=== PATIENT | female | born 1995 | race Caucasian/White ===

== ENCOUNTER 2017-08-05 07:58 | Emergency (ER) | payer MEDICAID ==
[~2017-08-05] VITALS: Ht 160 cm; Wt 60.3 kg
[2017-08-05] MEDS ORDERED: MORPHINE SULFATE 4 MG/ML, 1ML ONE (10:34)
[2017-08-05] MEDS: MORPHINE SULFATE 4 MG/ML, 1ML IVPush PRN ×2 (10:36→11:00)
[2017-08-05 10:51] LABS: ALANINE AMINOTRANSFERASE 22 U/L (12-78); ALBUMIN 3.9 g/dL (3.4-5.0); ANION GAP 6 mmol/L (5-15); CALCIUM 8.4 mg/dL (8.5-10.1); CHLORIDE 106 mmol/L (98-107)
[2017-08-05 11:08] LABS: ALKALINE PHOSPHATASE 52 U/L (45-117); BILIRUBIN,TOTAL 0.9 mg/dL (0.2-1.0); CREATININE 0.58 mg/dL (0.55-1.02); TOTAL PROTEIN 7.3 g/dL (6.4-8.2)
[2017-08-05 12:08] LABS: MICROSCOPIC INDICATED
[2017-08-05 12:23] LABS: CULTURE INDICATED? YES
[2017-08-05 12:34] VITALS: BP 101/58
== END 2017-08-05 13:02 | disposition home or self-care (01) ==
LOC: ED 12:57
DX: O23.11 Infections of bladder in pregnancy, first trimester (principal); Z3A.01 Less than 8 weeks gestation of pregnancy
CPT/HCPCS: 36415; 76801; 80053; 81001; 84702; 86901; 87086; 96374; 99285

== ENCOUNTER 2017-11-19 23:06 | Outpatient (CLI) | payer MEDICAID ==
[~2017-11-19] VITALS: Ht 160 cm; Wt 65.0 kg
[2017-11-19 23:15] VITALS: BP 99/51
[2017-11-19 23:58] LABS: BASOPHILS # (AUTO) 0.06 x10^3/uL (0-0.1); BASOPHILS % (AUTO) 1 % (0-1); EOSINOPHILS # (AUTO) 0.12 x10^3/uL (0-0.4); EOSINOPHILS % (AUTO) 1 % (1-7); LYMPHOCYTES # (AUTO) 1.76 x10^3/uL (1-3.4); LYMPHOCYTES % (AUTO) 19 % (22-44); MD NO; MEAN CORPUSCULAR HEMOGLOBIN 30.3 pg (27.0-34.8); MEAN CORPUSCULAR HGB CONC 33.7 g/dL (32.4-35.8); MEAN CORPUSCULAR VOLUME 90.1 fL (80-100); MEAN PLATELET VOLUME 8.6 fL (7.4-10.4); MONOCYTES # (AUTO) 0.45 x10^3/uL (0.2-0.8); MONOCYTES % (AUTO) 5 % (2-9); NEUTROPHILS # (AUTO) 6.77 x10^3/uL (1.8-6.8); NEUTROPHILS % (AUTO) 74 % (42-75); PLATELET COUNT 184 x10^3/uL (130-400); RED BLOOD COUNT 3.81 x10^6/uL (3.82-5.3); RED CELL DISTRIBUTION WIDTH 13.1 % (9.6-15.2)
[2017-11-20 00:09] LABS: ALANINE AMINOTRANSFERASE 31 U/L (12-78); ALBUMIN 2.5 g/dL (3.4-5.0); ANION GAP 11 mmol/L (5-15); CALCIUM 7.9 mg/dL (8.5-10.1); CHLORIDE 111 mmol/L (98-107); CREATININE 0.44 mg/dL (0.55-1.02)
[2017-11-20 00:11] LABS: ALKALINE PHOSPHATASE 63 U/L (45-117); BILIRUBIN,TOTAL 0.3 mg/dL (0.2-1.0); TOTAL PROTEIN 6.1 g/dL (6.4-8.2)
[2017-11-20 00:27] LABS: MICROSCOPIC INDICATED
[2017-11-20 00:33] LABS: AMPHETAMINE SCREEN, URINE Negative (Negative); BARBITURATE SCREEN, URINE Negative (Negative); BENZODIAZEPINE SCREEN, URINE Negative (Negative); CANNABINOID SCREEN, URINE Negative (Negative); COCAINE SCREEN, URINE Negative (Negative); METHADONE SCREEN, URINE Negative (Negative); OPIATE SCREEN, URINE Negative (Negative)
== END 2017-11-20 01:08 | disposition home or self-care (01) ==
LOC: LDOP 23:06
PROVIDERS: ATTEND Student in an Organized Health Care Education/Training Program
DX: O99.612 Diseases of the digestive system complicating pregnancy, second trimester (principal); R10.13 Epigastric pain
CPT/HCPCS: 36415; 59025; 76700; 76815; 80053; 80307; 81001; 83690; 85025; 99211; G0463

== ENCOUNTER 2018-04-29 08:02 | Inpatient (IN) | payer MEDICAID ==
[~2018-04-29] VITALS: Ht 160 cm; Wt 62.1 kg
[2018-04-29] MEDS ORDERED: ONDANSETRON 2MG/ML, 2ML IVPush ONE (08:30)
[2018-04-29] MEDS ORDERED: SODIUM CHLORIDE FLUSH 10ML SYR IVF ONE (08:30)
[2018-04-29] MEDS ORDERED: MORPHINE SULFATE 4 MG/ML, 1ML ONE ×2 (08:31→09:48)
[2018-04-29] MEDS ORDERED: ONDANSETRON 2MG/ML, 2ML ONE ×2 (08:31→16:34)
[2018-04-29] MEDS: MORPHINE SULFATE 4 MG/ML, 1ML IVPush PRN ×2 (08:43→09:51)
[2018-04-29 09:00] LABS: HCG UR SG 1.027 (1.003-1.030)
[2018-04-29 09:02] LABS: CULTURE INDICATED? YES; MICROSCOPIC INDICATED
[2018-04-29 09:03] LABS: BASOPHILS # (AUTO) 0.03 x10^3/uL (0-0.1); BASOPHILS % (AUTO) 0 % (0-1); EOSINOPHILS # (AUTO) 0.07 x10^3/uL (0-0.4); EOSINOPHILS % (AUTO) 1 % (1-7); LYMPHOCYTES % (AUTO) 22 % (22-44); MD NO; MEAN CORPUSCULAR HEMOGLOBIN 27.2 pg (27.0-34.8); MEAN CORPUSCULAR HGB CONC 32.8 g/dL (32.4-35.8); MEAN CORPUSCULAR VOLUME 82.8 fL (80-100); MEAN PLATELET VOLUME 8.6 fL (7.4-10.4); MONOCYTES # (AUTO) 0.39 x10^3/uL (0.2-0.8); MONOCYTES % (AUTO) 5 % (2-9); NEUTROPHILS # (AUTO) 5.87 x10^3/uL (1.8-6.8); NEUTROPHILS % (AUTO) 72 % (42-75); PLATELET COUNT 245 x10^3/uL (130-400); RED BLOOD COUNT 5.25 x10^6/uL (3.82-5.3); RED CELL DISTRIBUTION WIDTH 15.3 % (9.6-15.2)
--- NOTE | 2018-04-29 09:05 | NUR ---
pt laying on gurney with eyes closed, more comfortable after pain med, responds approp to staff, NAD, comfort measures provided, famiily at BS, call light within reach.
--- NOTE | 2018-04-29 09:11 | NUR ---
pt verbalized understanding of NPO order.
[2018-04-29 09:13] LABS: ALANINE AMINOTRANSFERASE 27 U/L (12-78); ALBUMIN 4.3 g/dL (3.4-5.0); ANION GAP 4 mmol/L (5-15); CALCIUM 8.8 mg/dL (8.5-10.1); CHLORIDE 111 mmol/L (98-107); CREATININE 0.83 mg/dL (0.55-1.02)
[2018-04-29 09:15] LABS: ALKALINE PHOSPHATASE 90 U/L (45-117); TOTAL PROTEIN 8.1 g/dL (6.4-8.2)
--- NOTE | 2018-04-29 09:50 | NUR ---
pt sitting up on gurney with awake with c/o pain, medicated per eMAR, responds approp to staff, NAD, comfort measures provided, famiily at BS, call light within reach. US at BS
[2018-04-29] MEDS ORDERED: HYDROmorphone 1 MG/ML, 1ML ONE (10:38)
--- NOTE | 2018-04-29 10:42 | NUR ---
pt to MRI
[2018-04-29] MEDS ORDERED: HYDROmorphone 1 MG/ML, 1ML IV ONE (11:00)
--- NOTE | 2018-04-29 11:34 | NUR ---
pt returned from MRI
[2018-04-29] MEDS ORDERED: CEFOTETAN PMX 1GM/50ML 0 ML ONE (11:53)
[2018-04-29] MEDS ORDERED: CEFOTETAN PMX 2GM/50ML 50 ML IV ONE (12:00)
[2018-04-29] MEDS ORDERED: ONDANSETRON 2MG/ML, 2ML IVPush PRN (12:00)
[2018-04-29] MEDS ORDERED: SODIUM CHLORIDE 0.9%, 250ML IVBOLUS ONE (12:00)
[2018-04-29] MEDS ORDERED: SODIUM CHLORIDE FLUSH 10ML SYR IVF PRN (12:00)
[2018-04-29] MEDS ORDERED: MORPHINE SULFATE 4 MG/ML, 1ML IVPush PRN (12:00)
--- NOTE | 2018-04-29 12:00 | NUR ---
pt laying on gurney with eyes closed, responds approp to staff, NAD, comfort measures provided, famiily at BS, call light within reach. pt updated on POC by ERP
--- NOTE | 2018-04-29 12:27 | NUR ---
Pt to be admitted to Peds, room 306. Report called to Marisa.
[2018-04-29] MEDS ORDERED: SODIUM CHLORIDE 0.9% 1,000ML IVBOLUS ONE (12:30)
[2018-04-29] MEDS ORDERED: NS + 20MEQ KCL 1,000 ML IV SCH (12:30)
[2018-04-29] MEDS ORDERED: NS + 20MEQ KCL 1,000 ML IV ONE (12:30)
[2018-04-29 13:23] VITALS: BP 117/76
[2018-04-29] MEDS ORDERED: EPINEPHRINE 1 MG/ML, 1ML ONE (15:19)
[2018-04-29] MEDS ORDERED: BUPIVACAINE/PF 0.25% ONE (15:19)
[2018-04-29] MEDS ORDERED: MIDAZOLAM 1 MG/ML, 2ML ONE (15:28)
[2018-04-29] MEDS ORDERED: FENTANYL PF 100 MCG/2ML ONE (15:28)
[2018-04-29] MEDS ORDERED: HYDROmorphone 2 MG/ML, 1ML IVPush PRN (16:00)
[2018-04-29] MEDS ORDERED: METOPROLOL 1 MG/ML, 5ML IV PRN (16:00)
[2018-04-29] MEDS ORDERED: FENTANYL PF 100 MCG/2ML IV PRN (16:00)
[2018-04-29] MEDS ORDERED: LABETALOL 5MG/ML, 20ML IV PRN (16:00)
[2018-04-29] MEDS ORDERED: hydrALAzine 20 MG/ML, 1ML IV PRN (16:00)
[2018-04-29] MEDS ORDERED: PROCHLORPERAZINE 5 MG/ML, 2ML IV PRN (16:00)
[2018-04-29] MEDS ORDERED: HALOPERIDOL 5 MG/ML IV PRN (16:00)
[2018-04-29] MEDS ORDERED: DIPHENHYDRAMINE 50 MG/ML, 1ML IVPush PRN (16:00)
[2018-04-29] MEDS ORDERED: OXYcodone 5 MG/5 ML ORAL.SOL UDC PO PRN (16:00)
[2018-04-29] MEDS ORDERED: PROMETHAZINE 25 MG/ML, 1ML IV PRN (16:00)
[2018-04-29] MEDS ORDERED: MEPERIDINE/PF 25MG/0.5ML IVPush PRN (16:00)
[2018-04-29] MEDS ORDERED: PROPOFOL 10 MG/ML, 20ML ONE (16:34)
[2018-04-29] MEDS ORDERED: ROCURONIUM 10 MG/ML,10ML ONE (16:34)
[2018-04-29] MEDS ORDERED: KETOROLAC 30 MG/1 ML ONE (16:34)
[2018-04-29] MEDS ORDERED: SUCCINYLCHOLINE 20 MG/ML, 10ML ONE (16:34)
[2018-04-29] MEDS ORDERED: DEXAMETHASONE 4 MG/ML, 5ML ONE (16:34)
[2018-04-29] MEDS ORDERED: BUPIVACAINE/PF 0.25% INFIL ONE (16:54)
[2018-04-29] MEDS ORDERED: OXYcodone 5 MG/5 ML ORAL.SOL UDC ONE (17:41)
[2018-04-29] MEDS ORDERED: LACTATED RINGERS 1,000 ML IV SCH ×2 (18:33→19:00)
[2018-04-29 19:00] VITALS: BP 120/70
[2018-04-29] MEDS ORDERED: HYDROcodone/APAP 5/325 TABLET PO PRN ×2 (19:00)
[2018-04-29 19:30] VITALS: BP 117/69
[2018-04-29 20:00] VITALS: BP 105/59
[2018-04-29 21:40] VITALS: BP 113/70
== END 2018-04-29 21:40 | disposition home or self-care (01) | DRG 419 ==
LOC: ED 08:50 → EDIP 11:48 → 3WST 12:27
PROVIDERS: ADMIT Surgery; ATTEND Surgery
PROC: 0FT44ZZ Resection of Gallbladder, Percutaneous Endoscopic Approach (ICD-10-PCS; principal; 2018-04-29 16:00)
DX: K80.00 Calculus of gallbladder with acute cholecystitis without obstruction (principal); K82.8 Other specified diseases of gallbladder; K66.0 Peritoneal adhesions (postprocedural) (postinfection); K83.8 Other specified diseases of biliary tract
CPT/HCPCS: 36415; 74181; 76700; 80053; 81001; 81025; 83690; 85025; 87086; 88304; 99285; C1729; G0378; J0171; J1100; J1170; J1885; J2250; J2405; J2704; J3010; J3480; J3490; J0330; J7030

== ENCOUNTER 2019-08-24 13:39 | Emergency (ER) | payer MEDICAID ==
[~2019-08-24] VITALS: Ht 160 cm; Wt 70.4 kg
--- NOTE | 2019-08-24 13:51 | NUR ---
C/O INTERMITTENT LOWER ABD PAIN X SEVERAL DAYS, WORSE TODAY. DENIES N/V, DIARRHEA, CONSTIPATION, RECENT ANTIBIOTIC INTAKE. TYLENOL THIS AM: 0830. LMP: JULY 13, 2019 + HOME PG TEST; HASN'T SEEN OB, YET.
--- NOTE | 2019-08-24 14:05 | NUR ---
VOIDED SPECIMEN SENT TO LAB
--- NOTE | 2019-08-24 14:14 | NUR ---
PT REPORT TO SHANNAN SPAIN RN. PT CARE TRANSFERRED.
[2019-08-24] MEDS ORDERED: ACETAMINOPHEN 500 MG TABLET ONE (14:16)
[2019-08-24 14:17] LABS: MICROSCOPIC AUTO
--- NOTE | 2019-08-24 14:17 | NUR ---
task rn note: Report from ABHINAV Marquez. Upon entry to room for po med administration, pt absent. Will wait for return from imaging.
[2019-08-24 14:23] LABS: BASOPHILS # (AUTO) 0.04 x10^3/uL (0-0.1); BASOPHILS % (AUTO) 1 % (0-1); EOSINOPHILS # (AUTO) 0.17 x10^3/uL (0-0.4); EOSINOPHILS % (AUTO) 2 % (1-7); LYMPHOCYTES # (AUTO) 2.58 x10^3/uL (1-3.4); LYMPHOCYTES % (AUTO) 36 % (22-44); MD NO; MEAN CORPUSCULAR HEMOGLOBIN 30.2 pg (27.0-34.8); MEAN CORPUSCULAR HGB CONC 33.2 g/dL (32.4-35.8); MEAN CORPUSCULAR VOLUME 90.9 fL (80-100); MONOCYTES # (AUTO) 0.41 x10^3/uL (0.2-0.8); MONOCYTES % (AUTO) 6 % (2-9); NEUTROPHILS # (AUTO) 4.03 x10^3/uL (1.8-6.8); NEUTROPHILS % (AUTO) 56 % (42-75); PLATELET COUNT 219 x10^3/uL (130-400); RED BLOOD COUNT 4.94 x10^6/uL (3.82-5.3); RED CELL DISTRIBUTION WIDTH 12.7 % (9.6-15.2)
[2019-08-24 14:30] LABS: ALBUMIN 3.9 g/dL (3.4-5.0); ANION GAP 6 mmol/L (5-15); CALCIUM 8.9 mg/dL (8.5-10.1); CHLORIDE 110 mmol/L (98-107)
[2019-08-24] MEDS ORDERED: ACETAMINOPHEN 500 MG TABLET PO ONE (14:30)
[2019-08-24 14:48] LABS: ALANINE AMINOTRANSFERASE 89 U/L (12-78); ALKALINE PHOSPHATASE 67 U/L (45-117); BILIRUBIN,TOTAL 0.7 mg/dL (0.2-1.0); CREATININE 0.72 mg/dL (0.55-1.02); TOTAL PROTEIN 7.5 g/dL (6.4-8.2)
--- NOTE | 2019-08-24 14:54 | NUR ---
PT REPORT FROM ABHINAV SPAIN. PT CARE TO BE RESUMED.
[2019-08-24 15:39] VITALS: BP 101/55
== END 2019-08-24 15:41 | disposition home or self-care (01) ==
LOC: ED 14:35
DX: O20.0 Threatened abortion (principal); O23.41 Unspecified infection of urinary tract in pregnancy, first trimester; R82.71 Bacteriuria; Z3A.00 Weeks of gestation of pregnancy not specified
CPT/HCPCS: 36415; 76801; 80053; 81001; 84702; 85025; 86901; 87086; 99284

== ENCOUNTER 2020-02-02 16:27 | Emergency (ER) | payer MEDICAID ==
[~2020-02-02] VITALS: Ht 160 cm; Wt 71.5 kg
[2020-02-02 17:17] LABS: BASOPHILS % (AUTO) 0 % (0-1); EOSINOPHILS % (AUTO) 0 % (1-7); LYMPHOCYTES % (AUTO) 16 % (22-44); MEAN CORPUSCULAR HEMOGLOBIN 30.8 pg (27.0-34.8); MEAN PLATELET VOLUME 8.8 fL (7.4-10.4); MONOCYTES % (AUTO) 10 % (2-9); NEUTROPHILS % (AUTO) 74 % (42-75); PLATELET COUNT 182 x10^3/uL (130-400); RED BLOOD COUNT 4.38 x10^6/uL (3.82-5.3); RED CELL DISTRIBUTION WIDTH 13.1 % (9.6-15.2)
[2020-02-02 17:18] LABS: MD NO
[2020-02-02 17:27] LABS: ALANINE AMINOTRANSFERASE 63 U/L (12-78); ALBUMIN 3.3 g/dL (3.4-5.0); ANION GAP 8 mmol/L (5-15); CALCIUM 9.3 mg/dL (8.5-10.1); CHLORIDE 109 mmol/L (98-107); CREATININE 0.56 mg/dL (0.55-1.02)
[2020-02-02 17:29] LABS: ALKALINE PHOSPHATASE 74 U/L (45-117); BILIRUBIN,TOTAL 0.3 mg/dL (0.2-1.0); TOTAL PROTEIN 7.6 g/dL (6.4-8.2)
--- NOTE | 2020-02-02 18:40 | NUR ---
PT AMBULATED TO ROOM FROM [facility]
--- NOTE | 2020-02-02 18:55 | NUR ---
REPORT GIVEN TO JACI LA
--- NOTE | 2020-02-02 18:55 | NUR ---
report received from sheldon guzman
[2020-02-02 19:45] LABS: MICROSCOPIC INDICATED
[2020-02-02 20:23] VITALS: BP 102/78
== END 2020-02-02 20:25 | disposition home or self-care (01) ==
LOC: ED 16:57
DX: O99.512 Diseases of the respiratory system complicating pregnancy, second trimester (principal); U07.1 COVID-19; R43.8 Other disturbances of smell and taste; R05 Cough; M79.10 Myalgia, unspecified site; Z3A.19 19 weeks gestation of pregnancy; Z87.891 Personal history of nicotine dependence
CPT/HCPCS: 36415; 71045; 76815; 80053; 81001; 85025; 87086; 87635; 99285

== ENCOUNTER 2020-03-29 06:10 | Outpatient (CLI) | payer MEDICAID ==
[2020-03-29 06:49] LABS: MICROSCOPIC INDICATED
[2020-03-29 06:52] LABS: AMPHETAMINE SCREEN, URINE Negative (Negative); BARBITURATE SCREEN, URINE Negative (Negative); BENZODIAZEPINE SCREEN, URINE Negative (Negative); CANNABINOID SCREEN, URINE Positive (Negative); COCAINE SCREEN, URINE Negative (Negative); METHADONE SCREEN, URINE Negative (Negative); OPIATE SCREEN, URINE Negative (Negative)
== END 2020-03-29 07:27 | disposition home or self-care (01) ==
LOC: LDOP 06:10
PROVIDERS: ATTEND Obstetrics & Gynecology
DX: O26.899 Other specified pregnancy related conditions, unspecified trimester (principal); Z3A.00 Weeks of gestation of pregnancy not specified
CPT/HCPCS: 59025; 80307; 81001; 87086